=== PATIENT | male | born 1980 | race Caucasian/White ===

== ENCOUNTER 2018-03-19 14:34 | Emergency (ER) | payer BC ==
--- NOTE | 2018-03-19 15:58 | RAD ---
Indication: RIGHT knee medial proximal tibia pain and edema following injury. Comparison: None. Technique: RIGHT knee: AP, tunnel, lateral, sunrise views. REPORT AND IMPRESSION: #. Suprapatellar joint effusion. #. Negative for fracture or malalignment. Preserved joint spaces. #. Mild anterior soft tissue contours.
[2018-03-19] MEDS ORDERED: Ibuprofen TAB* 800 MG PO ONE (16:51)
[2018-03-19 16:55] VITALS: BP 156/104
[2018-03-19] MEDS ORDERED: Ibuprofen TAB* 400 MG PO ONE (17:19)
--- NOTE | 2018-03-20 12:35 | ED ---
Lower Extremity - HPI Summary HPI Summary: Patient is a 37-year-old male presenting to the ED with right knee pain and swelling after twisting the knee during a sporting game a few days ago. Denies any ecchymosis. He remains ambulatory. Pain is worse with flexion and extension, better with rest. He has been using ice and ibuprofen with good relief. He's never injured the knee in the past. He has a brace on on arrival. Denies any fevers, sweats, chills. - History of Current Complaint Chief Complaint: EDExtremityLower Stated Complaint: RT KNEE INJURY Time Seen by Provider: 03/19/18 15:11 Hx Obtained From: Patient Mechanism Of Injury: Twisted Onset of Pain: Hours Onset/Duration: Hours Severity Initially: Moderate Severity Currently: Moderate Pain Intensity: 5 Pain Scale Used: 0-10 Numeric Timing: Constant Location: Is Discrete @ - right knee with swelling Associated Signs And Symptoms: Positive: Swelling. Negative: Redness, Bruising , Fever, Weakness Aggravating Factor(s): Standing, Ambulation Alleviating Factor(s): Rest Able to Bear Weight: Yes - Risk Factors Gout Risk Factors: Male DVT Risk Factors: Negative Septic Arthritis Risk Factor: Negative - Allergies/Home Medications Allergies/Adverse Reactions: Allergies Allergy/AdvReac Type Severity Reaction Status Date / Time No Known Allergies Allergy Verified 03/19/18 14:43 PMH/Surg Hx/FS Hx/Imm Hx Previously Healthy: Yes - Immunization History Hx Pertussis Vaccination: No Immunizations Up to Date: Yes Infectious Disease History: No Infectious Disease History: Denies: Traveled Outside the [place] in Last 30 Days - Social History Occupation: Employed Full-time Lives: With Family Alcohol Use: Weekly Hx Substance Use: Yes Substance Use Type: Reports: Marijuana Smoking Status (MU): Current Some Day Smoker Review of Systems Negative: Fever, Chills, Fatigue, Skin Diaphoresis Negative: Palpitations, Chest Pain Negative: Shortness Of Breath, Cough Positive: Arthralgia, Myalgia Skin: Negative Negative: Headache, Weakness, Paresthesia Psychological: Normal All Other Systems Reviewed And Are Negative: Yes Physical Exam Triage Information Reviewed: Yes Vital Signs On Initial Exam: Initial Vitals Temp Pulse Resp BP Pulse Ox 98.2 F 60 16 147/107 99 03/19/18 14:41 03/19/18 14:41 03/19/18 14:41 03/19/18 14:41 03/19/18 14:41 Vital Signs Reviewed: Yes Appearance: Positive: Well-Appearing, Well-Nourished Skin: Positive: Warm, Skin Color Reflects Adequate Perfusion Head/Face: Positive: Normal Head/Face Inspection Eyes: Positive: EOMI, KIKE, Conjunctiva Clear Neck: Positive: Supple, No Lymphadenopathy Respiratory/Lung Sounds: Positive: Clear to Auscultation, Breath Sounds Present Cardiovascular: Positive: RRR, Pulses are Symmetrical in both Upper and Lower Extremities Musculoskeletal: Positive: Pain @ - right knee pain and swelling - without erythema Neurological: Positive: Sensory/Motor Intact, Alert, Oriented to Person Place, Time, Speech Normal Psychiatric: Positive: Normal, Affect/Mood Appropriate AVPU Assessment: Alert Diagnostics - Vital Signs Vital Signs Temp Pulse Resp BP Pulse Ox 03/19/18 16:45 98.3 F 62 18 156/104 100 03/19/18 14:41 98.2 F 60 16 147/107 99 - Laboratory Lab Statement: Any lab studies that have been ordered have been reviewed, and results considered in the medical decision making process. Lower Extremity Course/Dx - Course Course Of Treatment: Patient is evaluated for right knee pain. Anterior drawer negative. Patient remains ambulatory, however with discomfort. Likely not a ligamentous injury, however he will be referred to orthopedics. Knee x-ray obtained shows a suprapatellar effusion. He will continue to use ice and ibuprofen for relief. - Diagnoses Differential Diagnosis/HQI/PQRI: Positive: Fracture (Closed), Sprain, Strain Provider Diagnoses: Knee effusion, right Discharge - Sign-Out/Discharge Documenting (check all that apply): Patient Departure - Discharge Plan Condition: Stable Disposition: HOME Patient Education Materials: Swollen Knee Joint (ED) Referrals: Aldo Lance MD [Medical Doctor] - Jameel Townsend MD [Primary Care Provider] - Additional Instructions: Please follow-up with orthopedic clinic Call tomorrow for an appointment Ibuprofen 600 mg 4 times daily Do not exceed 5 days Do not take Tylenol if you're consuming alcohol Ice to the knee as much as possible Elevation Keep knee in a brace or an Carroll bandage - Billing Disposition and Condition Condition: STABLE Disposition: Home
== END 2018-03-19 16:45 | disposition home or self-care (01) ==
LOC: ED 14:34
DX: M25.461 Effusion, right knee (principal); F17.200 Nicotine dependence, unspecified, uncomplicated
CPT/HCPCS: 99282; A9270-GY